=== PATIENT | female | born 1955 | race Caucasian/White ===

== ENCOUNTER 2017-04-24 10:42 | Emergency (ER) | payer SELFPAY ==
[~2017-04-24] VITALS: Ht 165.1 cm; Wt 51.0 kg
[~2017-04-24 10:42] MED LIST: LEVO150T7 PO; LORTA5 PO
[2017-04-24 10:51] VITALS: BP 126/78; PULSE 67; RESP 18; TEMP 97.8; O2SAT 100
[2017-04-24 10:55] VITALS: BP 126/78; PULSE 71; RESP 18; TEMP 97.8; O2SAT 100
[2017-04-24] MEDS ORDERED: MORPHINE SULFATE 2 MG/ML INJ IV PUSH ONE ×2 (11:30→13:30)
[2017-04-24] MEDS ORDERED: SODIUM CHLOR 0.9% 1000 ML INJ 1,000 ML IV ONE (11:30)
--- NOTE | 2017-04-24 11:39 | PD ---
HPI Chief Complaint: Fall Time Seen by Provider: 10:53 Travel History International Travel<30 days: No Contact w/Intl Traveler<30days: No Traveled to known affect area: No History of Present Illness HPI The patient is a 61-year-old female who presents to the emergency department after trip and fall. The patient was walking her dog earlier today when she stepped on uneven pavement and fell onto her right shoulder. She complains of right shoulder pain with decreased ability to move the right upper extremity. She also complains of an abrasion and pain over the anterior aspect of her left knee. The patient denies any trauma to the head or neck. She denies any loss of consciousness. The pain is located at the right shoulder, worse with movement and palpation. She denies any associated numbness or tingling of the right upper extremity. She denies any chest pain, shortness of breath, nausea, vomiting, or abdominal pain. Symptoms are moderate. Exacerbated after falling. She is right-hand dominant. The chin received morphine 4 mg intravenously and normal saline 400 mg intravenously prior to arrival by EMS. 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, ENDOMETRIOSIS) Radiation Therapy: Yes Thyroid Disease: Yes Tetanus Vaccination: < 5 Years Influenza Vaccination: No ?: Not Menopausal: Yes Past Surgical History Ear Surgery: Yes Endocrine Surgery: Yes (THYROIDECTOMY ) Gynecologic Surgery: Yes (REMOVAL OF THE OVARY/TUMOR) Hysterectomy: Yes Social History Alcohol Use: Yes (RARELY) Tobacco Use: Yes (1 PPD) Substance Use: No Allergies-Medications (Allergen,Severity, Reaction): Coded Allergies: cortisone (Unverified Allergy, Severe, FACIAL REDNESS , 10/29/16) lidocaine (Unverified Allergy, Mild, LOW BP, 10/29/16) procaine (Unverified Allergy, Mild, LOW BP , 10/29/16) penicillin G (Unverified Allergy, Unknown, 10/29/16) Reported Meds & Prescriptions Reported Meds & Active Scripts Active Union 5/325 (Hydrocodone/Acetaminophen 5/325) 5 mg/325 mg Tab 1 Tab PO Q6H PRN Reported Levothyroxine 150 mcg (Levothyroxine Sodium) 150 Mcg Tab 150 Mcg PO DAILY Review of Systems Except as stated in HPI: all other systems reviewed are Neg HENT: No: Headaches, Neck Pain Cardiovascular: No: Chest Pain or Discomfort Respiratory: No: Shortness of Breath Gastrointestinal: No: Nausea, Vomiting, Abdominal Pain Musculoskeletal: Positive: Limited ROM, Edema, Pain Neurologic: No: Headache, Change in Mentation, Paresthesia, Sensory Disturbance Physical Exam Narrative GENERAL: Awake, alert, pleasant 61-year-old female who appears her stated age and is in no acute respiratory distress. SKIN: Focused skin assessment warm/dry. Superficial abrasion of the extensor surface the left knee. HEAD: Atraumatic. Normocephalic. EYES: Pupils equal and round. No scleral icterus. No injection or drainage. ENT: No nasal bleeding or discharge. Mucous membranes pink and moist. NECK: Trachea midline. No JVD. CARDIOVASCULAR: Regular rate and rhythm. No murmur appreciated. RESPIRATORY: No accessory muscle use. Clear to auscultation. Breath sounds equal bilaterally. GASTROINTESTINAL: Abdomen soft, non-tender, nondistended. MUSCULOSKELETAL: Tenderness of the proximal right humerus and right lateral shoulder. Severe limited ability to abduct and extend the shoulder secondary to pain. No tenderness of the distal right humerus or right elbow. No tenderness of the right forearm or right wrist. Positive right radial pulse. Minimal tenderness of the anterior aspect the left knee but she is able flex left hip and left knee to 90. NEUROLOGICAL: Awake and alert. No obvious cranial nerve deficits. Motor grossly within normal limits. Normal speech. Nonfocal. Oriented 4. PSYCHIATRIC: Appropriate mood and affect; insight and judgment normal. Data Data Last Documented VS Vital Signs Date Time Temp Pulse Resp B/P (MAP) Pulse Ox O2 Delivery O2 Flow Rate FiO2 04/24/17 12:25 18 04/24/17 10:55 97.8 71 126/78 (94) 100 Room Air Orders Orders Shoulder, Limited(2vws) (04/24/17 ) Knee, Ltd (1 Or 2vws) (04/24/17 ) Sodium Chlor 0.9% 1000 Ml Inj (Ns 1000 M (04/24/17 11:30) Morphine Inj (Morphine Inj) (04/24/17 11:30) Sling And Swathe (04/24/17 ) Morphine Inj (Morphine Inj) (04/24/17 13:30) MDM Medical Decision Making Medical Screen Exam Complete: Yes Emergency Medical Condition: Yes Medical Record Reviewed: Yes Interpretation(s) Last Impressions Shoulder X-Ray 04/24/17 0000 Signed Impressions: Service Date/Time: April 11:52 - CONCLUSION: Two-part proximal humeral fracture. Yves Plascencia MD Knee X-Ray 04/24/17 0000 Signed Impressions: Service Date/Time: April 11:58 - CONCLUSION: 1. Probable small knee effusion. 2. No fracture seen. Yves Plascencia MD Differential Diagnosis Differential showed diagnosis includes humeral fracture, right shoulder dislocation, clavicle fracture, closed head injury, abrasion, contusion, knee fracture, sprain, strain. Narrative Course The patient was administered morphine and IV fluids. X-ray the right shoulder and left knee were obtained. The patient's tetanus shot was updated. X-ray the left knee reveals small effusion, no fracture. X-ray the right humerus reveals comminuted fracture. I discussed the patient with the on-call orthopedist, Dr. Wilson. He states the patient can call the office today to see the orthopedist tomorrow. Placed in a sling and swath. She was provided pain medication prior to the placement of sling and swath. She'll be discharged home with pain medications. Referrals: Manuelito Wilson Jr., MD call for appointment Call [phone] and talk with Lavern, state you were in the emergency Department and already see Dr. Wilson in the office tomorrow. Patient Instructions: General Instructions Additional Instructions: Call [phone] and talk with Lavern regarding appointment tomorrow to be seen by the orthopedist. Sling and swath. Ibuprofen as needed. Union as directed. Apply ice to the affected area. Med/Other Pt SpecificInfo: Prescription(s) given Scripts Hydrocodone-Acetaminophen (Union) 5 Mg-325 Mg Tab 1 TAB PO Q6H Y for PAIN, #20 TAB 0 Refills Prov: Mehul Menchaca MD 04/24/17 Disposition: 01 DISCHARGE HOME Condition: Stable Mehul Menchaca MD Apr 24, 2017 11:39
--- NOTE | 2017-04-24 12:44 | RADRPT ---
EXAM DATE/TIME: 04/24/2017 11:58 [facility] COMPARISON: No previous studies available for comparison. INDICATIONS : Left knee pain, fall. MEDICAL HISTORY : None. SURGICAL HISTORY : None. ENCOUNTER: Initial ACUITY: 1 day PAIN SCORE: 5/10 LOCATION: Left anterior patella. FINDINGS: Two view examination of the left knee demonstrates no evidence of fracture or dislocation. Bony mine ralization is normal. There is fullness in the suprapatellar region suggesting effusion. CONCLUSION: 1. Probable small knee effusion. 2. No fracture seen. Yves Plascencia MD on April 24, 2017 at 12:41 Board Certified Radiologist. This report was verified electronically.
--- NOTE | 2017-04-24 12:51 | RADRPT ---
EXAM DATE/TIME: 04/24/2017 11:52 [facility] COMPARISON: No previous studies available for comparison. INDICATIONS : Right shoulder pain, fall. MEDICAL HISTORY : None. SURGICAL HISTORY : None. ENCOUNTER: Initial ACUITY: 1 day PAIN SCORE: 10/10 LOCATION: Right proximal shoulder FINDINGS: There is a comminuted fracture of the proximal humerus with a transverse component with angulation an d displacement involving the surgical neck and an oblique fracture through the greater tuberosity wit hout displacement. On the transscapular Y. view, the humeral head maintains alignment with the glenoi d and the proximal shaft displaced anteriorly. The visualized right upper ribs and the a.c. joint sami ear intact. CONCLUSION: Two-part proximal humeral fracture. Yves Plascencia MD on April 24, 2017 at 12:46 Board Certified Radiologist. This report was verified electronically.
[2017-04-24] MEDS ORDERED: NORC5TAB PO (13:53)
[2017-04-24 14:10] VITALS: RESP 18
== END 2017-04-24 15:21 | disposition home or self-care (01) ==
LOC: NEPE 10:42
DX: S42.291A Other displaced fracture of upper end of right humerus, initial encounter for closed fracture (principal); S80.212A Abrasion, left knee, initial encounter; W01.0XXA Fall on same level from slipping, tripping and stumbling without subsequent striking against object, initial encounter; Y93.K1 Activity, walking an animal
CPT/HCPCS: 29240; 73030; 73560; 96361; 96374; 96376; 99284; J2270; J7030